=== PATIENT | male | born 1990 | race Caucasian/White ===

== ENCOUNTER 2016-06-02 10:25 | Emergency (ER) | payer SELFPAY ==
[~2016-06-02] VITALS: Ht 182.9 cm; Wt 63.5 kg
[2016-06-02 11:34] LABS: Basophils # (auto) 0.1 uL; Basophils % (auto) 0.6 % (0.0-2.0); DEFINITIVE VIEW TRANSMISSION; Eosinophils # (auto) 0 uL; Eosinophils % (auto) 0.1 % (0.0-7.0); Hematocrit 48.2 % (41.0-53.0); Hemoglobin 16.1 g/dL (13.5-17.5); Lymphocytes # (auto) 1.9 uL; Lymphocytes % (auto) 8.2 % (10.0-50.0); Mean Corpuscular Hemoglobin 29.2 pg (28.0-32.0); Mean Corpuscular Hgb Conc. 33.5 g/dL (32.0-36.0); Mean Corpuscular Volume 87.4 fL (80.0-100.0); Mean Platelet Volume 7.6 fL (7.4-10.4); Monocytes # (auto) 1.6 uL; Monocytes % (auto) 7.2 % (0.0-12.0); Neutrophils # (auto) 19.3 uL; Neutrophils % (auto) 83.9 % (37.0-80.0); Platelet Count (auto) 379 10^3/uL (140-450); Red Cell Distribution Width 13.7 % (11.6-16.0)
[2016-06-02] MEDS ORDERED: KETOROLAC TROMETH 30 MG/ML 1ML VIAL IV ONE (11:45)
[2016-06-02] MEDS ORDERED: PROCHLORPERAZINE EDISYLATE 5 MG/ML 2ML VIAL IV ONE (11:45)
[2016-06-02] MEDS ORDERED: SODIUM CHLORIDE 0.9% 1,000 ML IV ONE (11:45)
[2016-06-02] MEDS ORDERED: PANTOPRAZOLE SODIUM 40 MG/10 ML VIAL IV ONE (11:45)
[2016-06-02 11:48] LABS: Albumin 5.2 g/dL (3.4-5.0); BUN/Creatinine Ratio 15.4; Calcium 9.4 mg/dL (8.5-10.1); Potassium 3.4 mmol/L (3.5-5.1)
[2016-06-02 12:08] LABS: Bilirubin, Total 0.5 mg/dL (0.2-1.0); Total Protein 8.4 g/dL (6.4-8.2)
[2016-06-02 12:11] VITALS: BP 138/79
[2016-06-02] MEDS ORDERED: ONDANSETRON HCL 4 MG/2 ML VIAL IV ONE (12:30)
[2016-06-02] MEDS ORDERED: LORazepam 2MG/ML-1ML VIAL IV ONE (12:30)
== END 2016-06-02 13:59 | disposition home or self-care (01) ==
LOC: ER 10:25
DX: F10.239 Alcohol dependence with withdrawal, unspecified (principal); R10.9 Unspecified abdominal pain; R11.2 Nausea with vomiting, unspecified; F17.210 Nicotine dependence, cigarettes, uncomplicated; F12.10 Cannabis abuse, uncomplicated
CPT/HCPCS: 36415; 80053; 80320; 85025; 94761; 96361; 96374; 96375; 99284; C9113; J0780; J1885; J2060; J2405; J7030